=== PATIENT | male | born 1940 | race Caucasian/White ===

== ENCOUNTER 2020-10-22 13:34 | Outpatient (REF) | payer SELFPAY | END 2020-10-22 13:35 | disposition home or self-care (01) | LOC: HO.HAP 13:34 | PROVIDERS: Visit Provider Internal Medicine | DX: Z46.1 Encounter for fitting and adjustment of hearing aid (principal) | CPT/HCPCS: V5267 ==

== ENCOUNTER 2020-12-14 08:58 | Outpatient (REF) | payer MEDICARE, SELFPAY ==
--- NOTE | ~2020-12-14 | XR_ITS ---
EXAMINATION: XR PELVIS XR RIGHT HIP CLINICAL INFORMATION: Right total hip arthroplasty pain. COMPARISON: X-rays of the pelvis and right hip December 2019 TECHNIQUE: AP pelvis including hips and crosstable lateral view of the right hip FINDINGS: Right Hip: Right total hip arthroplasty with components in usual position unchanged compared to prior. No periprosthetic fracture or suspicious area of lucency. Left Hip: Mild joint space narrowing compatible with mild arthrosis. No change. Remaining bones, joints and soft tissues in the pelvis are normal. 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 XR/XR pelvis 1-2V IMPRESSION: Right total hip arthroplasty without complication by x-ray or change compared to prior. Mild arthrosis of the left hip.
--- NOTE | ~2020-12-14 | XR_ITS ---
EXAMINATION: XR PELVIS XR RIGHT HIP CLINICAL INFORMATION: Right total hip arthroplasty pain. COMPARISON: X-rays of the pelvis and right hip December 2019 TECHNIQUE: AP pelvis including hips and crosstable lateral view of the right hip FINDINGS: Right Hip: Right total hip arthroplasty with components in usual position unchanged compared to prior. No periprosthetic fracture or suspicious area of lucency. Left Hip: Mild joint space narrowing compatible with mild arthrosis. No change. Remaining bones, joints and soft tissues in the pelvis are normal. 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 XR/XR hip RT 1V IMPRESSION: Right total hip arthroplasty without complication by x-ray or change compared to prior. Mild arthrosis of the left hip.
--- NOTE | ~2020-12-14 | XR_ITS ---
EXAMINATION: XR KNEE, BILATERAL CLINICAL INFORMATION: Pain in the knee. COMPARISON: X-ray of the knees November 2018. TECHNIQUE: AP standing both knees and 2 views of the right knee. FINDINGS: RIGHT KNEE: Medial compartment: Severe joint space narrowing with marginal osteophytes. Overall slightly progressed. Marginal osteophytes about the lateral compartment indicative of arthrosis. Patellofemoral compartment: Marginal osteophytes indicative of arthrosis unchanged. Small effusion. Arterial calcification. LEFT KNEE LIMITED AP UPRIGHT: Mild arthrosis of the medial compartment with small subchondral cystic change and small marginal osteophyte perhaps slightly progressed. XR/XR knee standing BI IMPRESSION: Advanced osteoarthritis of the right knee slightly progressed when compared to 2019. Left knee limited: Mild arthrosis slightly progressed compared to prior.
--- NOTE | ~2020-12-14 | XR_ITS ---
EXAMINATION: XR KNEE, BILATERAL CLINICAL INFORMATION: Pain in the knee. COMPARISON: X-ray of the knees November 2018. TECHNIQUE: AP standing both knees and 2 views of the right knee. FINDINGS: RIGHT KNEE: Medial compartment: Severe joint space narrowing with marginal osteophytes. Overall slightly progressed. Marginal osteophytes about the lateral compartment indicative of arthrosis. Patellofemoral compartment: Marginal osteophytes indicative of arthrosis unchanged. Small effusion. Arterial calcification. LEFT KNEE LIMITED AP UPRIGHT: Mild arthrosis of the medial compartment with small subchondral cystic change and small marginal osteophyte perhaps slightly progressed. XR/XR knee RT 2V IMPRESSION: Advanced osteoarthritis of the right knee slightly progressed when compared to 2019. Left knee limited: Mild arthrosis slightly progressed compared to prior.
== END 2020-12-14 08:59 | disposition home or self-care (01) ==
LOC: HO.HOSX 08:58
PROVIDERS: Visit Provider Orthopaedic Surgery
DX: M17.11 Unilateral primary osteoarthritis, right knee (principal); Z96.641 Presence of right artificial hip joint
CPT/HCPCS: 20610; 72170; 73501; 73502; 73560; 73565; 99212; J1100

== ENCOUNTER → 2021-03-25 09:18 | Outpatient (BNVA) | payer MEDICARE, SELFPAY | PROVIDERS: Visit Provider Orthopaedic Surgery | DX: M17.11 Unilateral primary osteoarthritis, right knee (principal); Z96.641 Presence of right artificial hip joint | CPT/HCPCS: 99212 ==